=== PATIENT | male | born 1980 | race Two or more races ===

== ENCOUNTER 2024-07-10 17:26 | Emergency (ER) | payer MEDICAID, OTHER ==
[~2024-07-10] VITALS: Ht 160 cm; Wt 84.0 kg
[2024-07-10] MEDS: IOHEXOL 350 MG/ML 100ML IJ ONE (18:17)
[2024-07-10 18:34] LABS: Basophils # (auto) 0 10 ^3/uL (0-0.2); Basophils % (auto) 0.3 % (0.0-2.0); Eosinophils # (auto) 0.3 10 ^3/uL (0-0.8); Eosinophils % (auto) 2.3 % (0.0-7.0); Hematocrit 47.5 % (41.0-53.0); Hemoglobin 16.1 g/dL (13.5-17.5); Lymphocytes # (auto) 2.8 10 ^3/uL (0.4-5.4); Lymphocytes % (auto) 19.2 % (10.0-50.0); Mean Corpuscular Hemoglobin 31.5 pg (28.0-32.0); Mean Corpuscular Volume 92.7 fL (80.0-100.0); Monocytes # (auto) 0.8 10 ^3/uL (0-1.3); Monocytes % (auto) 5.6 % (0.0-12.0); Neutrophils # (auto) 10.4 10 ^3/uL (1.6-8.6); Neutrophils % (auto) 72.6 % (37.0-80.0); Platelet Count (auto) 302 10^3/uL (140-450); Red Blood Cells 5.12 10^6/uL (4.5-5.90); White Blood Cell 14.4 10^3/uL (4.4-10.8)
[2024-07-10 18:42] LABS: Alanine Aminotransferase 31 U/L (7-40); Albumin 4.7 g/dL (3.2-4.8); Alkaline Phosphatase 56 U/L (46-116); Anion Gap 10 (5-15); Aspartate Aminotransferase 23 U/L (13-40); Bilirubin, Total 0.5 mg/dL (0.2-1.0); Blood Urea Nitrogen 12 mg/dL (9-23); Calcium 9.8 mg/dL (8.7-10.4); Carbon Dioxide 23 mmol/L (20-30); Chloride 108 mmol/L (98-107); Glucose 103 mg/dL (74-106); Potassium 4.1 mmol/L (3.5-5.1); Sodium 141 mmol/L (136-145); Total Protein 7.3 g/dL (5.7-8.2)
[2024-07-10] MEDS: MORPHINE SULFATE 4 MG/ML SYR/VIAL IV ONE (18:50)
[2024-07-10] MEDS: ONDANSETRON HCL 4 MG/2 ML VIAL IV ONE (18:51)
[2024-07-10 18:53] LABS: INR 1.03 (0.9-1.15); Partial Thromboplastin Time 27.3 SEC (24.5-34.5); Prothrombin Time 10.9 sec (9.3-11.8)
[2024-07-10 19:43] LABS: Urine Bacteria FEW /hpf (None Seen); Urine Blood 3+ /uL (Negative); Urine Clarity Ex.Turbid (Clear); Urine Color Brown (Yellow); Urine Mucus FEW (None Seen); Urine Protein, UAD 2+ (Negative); Urine Specific Gravity 1.029 (1.001-1.035); Urine Urobilinogen Normal (Negative); Urine WBC 35 /hpf (0 - 3); Urine pH 5.5 (5.0-9.0)
[2024-07-10] MEDS ORDERED: MAGNESIUM SULFATE 1GM/100ML 100 ML IV STA (19:46)
[2024-07-10] MEDS ORDERED: IBUP-1456 PO (20:07)
[2024-07-10] MEDS ORDERED: TAMS-35 PO (20:07)
[2024-07-10] MEDS ORDERED: ZOFR4T PO (20:07)
[2024-07-10] MEDS ORDERED: CEPH500C PO (20:07)
[2024-07-10] MEDS: cefTRIAXone 2GM/50ML D5W 50 ML IV ONE (20:40)
[2024-07-10] MEDS: KETOROLAC TROMETH 30 MG/ML 1ML VIAL IV ONE (20:42)
[2024-07-10] MEDS: SODIUM CHLORIDE 0.9% 1,000 ML IV ONE (20:42)
[2024-07-10] MEDS: TAMSULOSIN HYDROCHLORIDE 0.4 MG CAP PO ONE (20:43)
[2024-07-11 00:09] VITALS: BP 119/90; PULSE 79; RESP 19; TEMP 97.8; O2SAT 95
== END 2024-07-11 01:29 | disposition home or self-care (01) ==
LOC: ER 17:26
DX: N20.1 Calculus of ureter (principal); N39.0 Urinary tract infection, site not specified; I10 Essential (primary) hypertension; E11.9 Type 2 diabetes mellitus without complications
CPT/HCPCS: 36415; 51702; 71260; 74177; 80053; 81001; 83605; 83690; 84484; 85025; 85610; 85730; 96365; 96375; 99285; J0696; J1885; J2270; J2405; J3475; Q9967